=== PATIENT | male | born 1980 | race Hispanic/Latino ===

== ENCOUNTER 2016-12-19 13:29 | Day surgery (SDC) | payer OTHER ==
[~2016-12-19] VITALS: Ht 165.1 cm; Wt 82.1 kg
[~2016-12-19 13:29] MED LIST: 0.9% Sodium Chloride 1,000 ML IV SCH; Sodium Chloride LOK Flush 10 mL Syringe IV PRN; fentaNYL-PF 50 mCg/mL 2 mL Inj IVPUSH PRN; no medications
[2016-12-19 14:37] VITALS: BP 126/76; PULSE 60; RESP 14; O2SAT 98
[2016-12-19] MEDS ORDERED: 0.9% Sodium Chloride 1,000 ML IV ONE (15:37)
[2016-12-19 16:07] VITALS: BP 129/78; PULSE 57; RESP 12; O2SAT 95
[2016-12-19 16:24] VITALS: BP 117/71; PULSE 62; RESP 14; O2SAT 98
[2016-12-19 16:27] VITALS: BP 130/85; PULSE 76; RESP 18; O2SAT 98
--- NOTE | 2016-12-19 17:13 | ENDO ---
[address] [address] ENDOSCOPY PROCEDURE PATIENT: JEAN PAUL BAILEY : 1980 MR#: [id number] ADMIT: 12/19/2016 JOB ID: [id number] PROCEDURE: Colonoscopy. INDICATION: Rectal bleeding. The patient's ASA classification is 2. Mallampati score is 2. MEDICATIONS: Versed 4 mg, fentanyl 100 mcg. INSTRUMENT USED: [id number]. PREPARATION QUALITY: Fair. PROCEDURE DETAILS: After informed consent was obtained, the patient was brought to the GI suite, where he was placed on oxygen via nasal cannula and monitored with continuous pulse oximeter, telemetry, and blood pressure monitoring. A time-out was performed. Then, he was placed in a left lateral decubitus position and medications were administered for sedation. Digital rectal exam was performed, which was unremarkable. The colonoscope was then inserted into the rectum and advanced under direct visualization to the terminal ileum which was identified by the presence of the ileocecal valve and villous-appearing mucosa of the terminal ileum. Once the terminal ileum was reached, the colonoscope was withdrawn back in the rectum, and mucosa and lumen were examined. In the rectum, retroflexion was performed. Following retroflexion, remaining air in the rectum was suctioned, and procedure was completed. FINDINGS: 1. From 60 cm to 50 cm, the mucosa was edematous, erythematous with submucosal hemorrhage. Multiple random biopsies were obtained. 2. Then from 50 to 40 cm, the mucosa appeared normal. However from 40 cm to 30 cm, again we encountered edematous, erythematous with submucosal hemorrhage mucosa. Additionally there were aphthous-appearing ulcers also noted here. Multiple random biopsies were obtained. 3. The remainder of the colon exam to the terminal ileum was otherwise unremarkable. Multiple random biopsies were obtained throughout the terminal ileum and colon in a segmental fashion. IMPRESSION: Crohn's colitis in a skip pattern in the left colon suggestive of Crohn's colitis. RECOMMENDATIONS: 1. Await biopsy results. 2. Will empirically start him on Lialda. 3. Follow up in GI clinic in 1-2 weeks. COMPLICATIONS: None. ESTIMATED BLOOD LOSS: Less than 5 mL. MTDD
--- NOTE | 2016-12-22 14:12 | PATH ---
SURGICAL PATHOLOGY Attending Physician:Jason Burns CASE STATUS: Signed Out PATIENT NAME: JEAN PAUL BAILEY PID: [id number] : 1980 DATE COLLECTED:12/19/2016 00:00 SPECIMEN: 1: Ileum, Biopsy 2: Colon, Biopsy 3: Colon, Biopsy 4: Colon, Biopsy 5: Colon, Biopsy 6: Colon, Biopsy 7: Rectum, Biopsy CLINICAL HISTORY: 1). TERMINAL ILEUM BIOPSY 2). RIGHT COLON BIOPSY 3). TRANSVERSE COLON BIOPSY 4). 60 CM COLON BIOPSY 5). LEFT COLON BIOPSY 6). 30 CM COLON BIOPSY 7). RECTAL BIOPSY FINAL DIAGNOSIS: 1.TERMINAL ILEUM BIOPSY: SUPERFICIAL FRAGMENTS OF NORMAL-APPEARING TERMINAL ILEUM MUCOSA. Negative for granulomas. Negative for significant inflammation, dysplasia and malignancy. 2.RIGHT COLON BIOPSY: FRAGMENTS OF NORMAL-APPEARING COLON MUCOSA. Negative for significant architectural distortion. Negative for significant inflammation, dysplasia and malignancy. 3.TRANSVERSE COLON BIOPSY: FRAGMENTS OF NORMAL-APPEARING COLON MUCOSA. Negative for significant architectural distortion. Negative for significant inflammation, dysplasia and malignancy. 4.60 CM COLON BIOPSY: DIFFUSE CHRONIC ACTIVE COLITIS WITH ACUTE CRYPTITIS AND CRYPT ABSCESSES AND FOCAL SUPERFICIAL MUCOSAL EROSION. Negative for dysplasia and malignancy. 5.LEFT COLON BIOPSY: CHANGES OF CHRONIC COLITIS, MINIMALLY ACTIVE. Negative for dysplasia and malignancy. 6.30 CM COLON BIOPSY: DIFFUSE CHRONIC ACTIVE COLITIS WITH CRYPTITIS AND CRYPT ABSCESSES. Negative for dysplasia and malignancy. 7.RECTAL BIOPSY: CHANGES OF CHRONIC ACTIVE COLITIS WITH ACUTE CRYPTITIS AND CRYPT ABSCESSES. Negative for dysplasia and malignancy. ICD10 code K51.9 NOTE: The changes present in parts 4 through 7 are consistent with primary inflammatory bowel disease with the alterations most consistent with chronic active ulcerative colitis. GROSS DESCRIPTION: Received are seven formalin-filled containers, each labeled with the patient' s name. 1. Received in formalin, labeled with the patient' s name and "TI BX", are two fragments of tomas, soft tissue ranging in size from 0.1 x 0.1 x 0.1 cm to 0.2 x 0.1 x 0.1 cm. All fragments are totally submitted in cassette 1A. 2. Received in formalin, labeled with the patient' s name and "right colon BX", are four fragments of tomas, soft tissue ranging in size from 0.1 x 0.1 x 0.1 cm to 0.2 x 0.1 x 0.1 cm. All fragments are totally submitted in cassette 2A. 3. Received in formalin, labeled with the patient' s name and "transverse colon BX", are two fragments of tomas, soft tissue ranging in size from 0.1 x 0.1 x 0.1 cm to 0.2 x 0.1 x 0.1 cm. All fragments are totally submitted in cassette 3A. 4. Received in formalin, labeled with the patient' s name and "60 cm colon BX", are three fragments of tomas, soft tissue ranging in size from 0.1 x 0.1 x 0.1 cm to 0.2 x 0.2 x 0.1 cm. All fragments are totally submitted in cassette 4A. 5. Received in formalin, labeled with the patient' s name and "left colon BX", are four fragments of tomas, soft tissue ranging in size from 0.1 x 0.1 x 0.1 cm to 0.2 x 0.1 x 0.1 cm. All fragments are totally submitted in cassette 5A. 6. Received in formalin, labeled with the patient' s name and "30 cm colon BX", are three fragments of tomas, soft tissue ranging in size from 0.1 x 0.1 x 0.1 cm to 0.2 x 0.1 x 0.1 cm. All fragments are totally submitted in cassette 6A. 7. Received in formalin, labeled with the patient' s name and "rectal BX", are three fragments of tomas, soft tissue ranging in size from 0.1 x 0.1 x 0.1 cm to 0.2 x 0.1 x 0.1 cm. All fragments are totally submitted in cassette 7A. ([id number]) MICRO DESCRIPTION: See diagnosis. ICD-9 CODES: CPT CODES: 1: 11668 2: 02404 3: 60943 4: 14794 5: 31503 6: 51899 7: 35602 Electronically Signed Out Mike Angela MD [facility]ology [facility], [place] [address] Technical component performed at [facility], [facility] [address], [place], [address]
== END 2016-12-19 23:59 | disposition home or self-care (01) ==
LOC: END 13:29
PROVIDERS: ATTEND Internal Medicine Gastroenterology
DX: K51.90 Ulcerative colitis, unspecified, without complications (principal); K62.5 Hemorrhage of anus and rectum; K59.00 Constipation, unspecified
CPT/HCPCS: 45380; 99153; G0500; J7030